=== PATIENT | female | born 1980 | race Caucasian/White ===

== ENCOUNTER 2017-07-02 16:47 | Emergency (ER) | payer SELFPAY ==
[~2017-07-02 16:47] MED LIST: AMOX500T PO; OXYC1SOL5 PO
[2017-07-02 16:48] VITALS: BP 135/78; PULSE 87; RESP 16; TEMP 98.4; O2SAT 98
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
== END 2017-07-02 18:09 | disposition home or self-care (01) ==
LOC: PHED 16:47 → PHEFT 18:09
DX: S01.81XD Laceration without foreign body of other part of head, subsequent encounter (principal); V29.9XXD Motorcycle rider (driver) (passenger) injured in unspecified traffic accident, subsequent encounter; Z48.02 Encounter for removal of sutures; F17.210 Nicotine dependence, cigarettes, uncomplicated; F14.90 Cocaine use, unspecified, uncomplicated
CPT/HCPCS: 99281